=== PATIENT | male | born 1975 | race Caucasian/White ===

== ENCOUNTER 2017-10-11 13:25 | Emergency (ER) | payer BC ==
[2017-10-11 13:31] VITALS: BP 133/82
[2017-10-11] MEDS ORDERED: Lidocaine 1% 20 ML MDV INJECT ONE (13:38)
[2017-10-11] MEDS ORDERED: Bacitracin/Neomycin/Polymyxin B Oint 0.9 GM U/D Packet TOP ONE (13:46)
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
== END 2017-10-11 14:00 | disposition home or self-care (01) ==
LOC: CC.ED 13:25
DX: S61.511A Laceration without foreign body of right wrist, initial encounter (principal); W25.XXXA Contact with sharp glass, initial encounter
CPT/HCPCS: 12001; 99282

== ENCOUNTER 2020-08-10 03:55 | Emergency (ER) | payer MEDICAID ==
[2020-08-10 04:00] VITALS: BP 133/80; PULSE 110
[2020-08-10] MEDS ORDERED: Take Home: Cefuroxime 250 MG Tab, 2 Tab Pack PO ONE (04:33)
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
== END 2020-08-10 04:49 | disposition home or self-care (01) ==
LOC: CC.ED 03:55
DX: T24.222A Burn of second degree of left knee, initial encounter (principal); T24.221A Burn of second degree of right knee, initial encounter; Z53.33 Arthroscopic surgical procedure converted to open procedure
CPT/HCPCS: 87070; 87077; 87186; 99283; A9270-GY

== ENCOUNTER 2020-09-24 13:00 | Emergency (ER) | payer MEDICAID ==
[2020-09-24] MEDS ORDERED: Albuterol/Ipratropium 3.0-0.5 MG/3 ML Neb Soln NEB ONE (13:16)
[2020-09-24] MEDS ORDERED: Albuterol 8 GM Inhaler INH STA (13:17)
[2020-09-24] MEDS ORDERED: predniSONE 20 MG Tab PO STA (13:17)
[2020-09-24] MEDS ORDERED: Azithromycin 250 MG Tab PO ONE (13:23)
--- NOTE | 2020-09-24 13:23 | EDM.PDOC ---
ED HPI GENERAL MEDICAL PROBLEM - General Chief Complaint: General Stated Complaint: Cough, Asthma Hx Time Seen by Provider: 09/24/20 13:03 Source of Information: Reports: Patient History Limitations: Reports: No Limitations - History of Present Illness INITIAL COMMENTS - FREE TEXT/NARRATIVE: This patient is a 45 year old male patient that presents to the ER. Patient reports that for 1 week having wheezing, cough, shortness of breath, and congestion. Patient denies n, v, d, f. Onset Date: 09/17/20 Duration: Week(s): (1) Severity: Moderate Improves with: Reports: None Worsens with: Reports: None Associated Symptoms: Reports: Cough, Shortness of Breath. Denies: Confusion, Chest Pain, cough w sputum, Diaphoresis, Fever/Chills, Headaches, Loss of Appetite, Malaise, Nausea/Vomiting, Rash, Seizure, Syncope, Weakness - Related Data Allergies Allergy/AdvReac Type Severity Reaction Status Date / Time No Known Allergies Allergy Verified 09/24/20 13:16 Home Meds: Home Meds Azithromycin [Zithromax] 250 mg PO DAILY 4 Days #4 tablet 09/24/20 [Rx] predniSONE [Prednisone] 20 mg PO DAILY #4 tablet 09/24/20 [Rx] Past Medical History Respiratory History: Reports: Asthma, Other (See Below) Other Respiratory History: seasonal allergies; PNA x3 Genitourinary History: Reports: Retention, Urinary Musculoskeletal History: Reports: None - Infectious Disease History Infectious Disease History: Reports: MRSA - Past Surgical History Respiratory Surgical History: Reports: None Male Surgical History: Reports: None Musculoskeletal Surgical History: Reports: Arthroscopic Knee, Other (See Below) Other Musculoskeletal Surgeries/Procedures:: right knee arthroscopic sx Social & Family History - Family History Cardiac: Reports: Arrhythmia, Hypertension - Caffeine Use Caffeine Use: Reports: Coffee, Energy Drinks ED ROS GENERAL - Review of Systems Review Of Systems: See Below Constitutional: Reports: No Symptoms. Denies: Fever HEENT: Reports: Rhinitis, Sinus Problem Respiratory: Reports: Shortness of Breath, Wheezing, Cough. Denies: Pleuritic Chest Pain, Sputum, Hemoptysis Cardiovascular: Reports: No Symptoms Endocrine: Reports: No Symptoms GI/Abdominal: Reports: No Symptoms : Reports: No Symptoms Musculoskeletal: Reports: No Symptoms Skin: Reports: No Symptoms Neurological: Reports: No Symptoms Psychiatric: Reports: No Symptoms Hematologic/Lymphatic: Reports: No Symptoms Immunologic: Reports: No Symptoms ED EXAM, GENERAL - Physical Exam Exam: See Below Exam Limited By: No Limitations General Appearance: Alert, WD/WN, No Apparent Distress Eye Exam: Bilateral Eye: Normal Inspection, PERRL Ears: Normal External Exam, Normal Canal, Hearing Grossly Normal, Normal TMs Ear Exam: Bilateral Ear: Auricle Normal, Canal Normal, TM normal Nose: Normal Inspection, Normal Mucosa, No Blood Throat/Mouth: Normal Inspection, Normal Lips, Normal Teeth, Normal Gums, Normal Oropharynx, Normal Voice, No Airway Compromise Head: Atraumatic, Normocephalic Neck: Normal Inspection, Supple, Non-Tender, Full Range of Motion Respiratory/Chest: No Respiratory Distress, No Accessory Muscle Use, Chest Non- Tender, Wheezing (inspiratory and expiratory moderate throughout. ). No: Crackles, Rales, Accessory Muscle Use, Retractions Cardiovascular: Normal Peripheral Pulses, Regular Rate, Rhythm, No Edema, No Gallop, No JVD, No Murmur, No Rub Peripheral Pulses: 2+: Radial (L), Radial (R) Back Exam: Normal Inspection Extremities: Normal Inspection, Normal Range of Motion, Non-Tender, No Pedal Edema, Normal Capillary Refill Neurological: Alert, Oriented, Normal Cognition, Normal Gait, No Motor/Sensory Deficits Psychiatric: Normal Affect, Normal Mood Skin Exam: Warm, Dry, Intact, Normal Color, No Rash Lymphatic: No Adenopathy Course - Orders/Labs/Meds Orders: Active Orders 24 hr Category Date Time Status RT Aerosol Therapy [RC] ASDIRECTED Care 09/24/20 13:16 Active RT Post Treatment Assessment [RC] Click to Edit Care 09/24/20 13:20 Active RT Pre-Treatment Assessment [RC] Click to Edit Care 09/24/20 13:20 Active Meds: Medications Discontinued Medications Generic Name Dose Route Start Last Admin Trade Name Freq PRN Reason Stop Dose Admin Albuterol 1 gm 09/24/20 13:17 09/24/20 13:28 Albuterol 8 Gm Inhaler INH 09/24/20 13:18 2 puff Q4H STA Administration Albuterol/Ipratropium 3 ml 09/24/20 13:16 09/24/20 13:23 Albuterol/Ipratropium 3.0-0.5 Mg/3 Ml Neb Soln NEB 09/24/20 13:17 3 ml ONETIME ONE Administration Azithromycin 500 mg 09/24/20 13:23 09/24/20 13:28 Azithromycin 250 Mg Tab PO 09/24/20 13:24 500 mg ONETIME ONE Administration Prednisone 20 mg 09/24/20 13:17 09/24/20 13:28 Prednisone 20 Mg Tab PO 09/24/20 13:18 20 mg NOW STA Administration - Re-Assessments/Exams Free Text/Narrative Re-Assessment/Exam: 09/24/20 13:38 Post breathing treatment, lungs have more audible wheeze, moving more air. Patient no longer coughing, reports no longer short of breath and feels better. Departure - Departure Time of Disposition: 13:34 Disposition: Home, Self-Care 01 Condition: Fair Clinical Impression: Acute bronchitis Qualifiers: Bronchitis organism: unspecified organism Qualified Code(s): J20.9 - Acute bronchitis, unspecified - Discharge Information *PRESCRIPTION DRUG MONITORING PROGRAM REVIEWED*: Not Applicable *COPY OF PRESCRIPTION DRUG MONITORING REPORT IN PATIENT LUIS: Not Applicable Prescriptions: predniSONE [Prednisone] 20 mg PO DAILY #4 tablet Azithromycin [Zithromax] 250 mg PO DAILY 4 Days #4 tablet Instructions: Acute Bronchitis, Adult, [id number] Referrals: PCP,None [Primary Care Provider] - Forms: ED Department Discharge Additional Instructions: Followup with your primary care provider Return to the ER for worsening of condition or any emergent concerns Rest ProAir inhaler 90mcg 1-2 puffs every 4-6 hours as needed #1 given in ER Prednisone 20mg 1 pill once a day for 5 days total #4 sent to pharmacy, #1 given in ER Zithromax 250mg 1 pill once a day for 4 days #4 sent to pharmacy - My Orders Last 24 Hours: My Active Orders 09/24/20 13:16 RT Aerosol Therapy [RC] ASDIRECTED 09/24/20 13:20 RT Post Treatment Assessment [RC] Click to Edit RT Pre-Treatment Assessment [RC] Click to Edit - Assessment/Plan Last 24 Hours: My Active Orders 09/24/20 13:16 RT Aerosol Therapy [RC] ASDIRECTED 09/24/20 13:20 RT Post Treatment Assessment [RC] Click to Edit RT Pre-Treatment Assessment [RC] Click to Edit Plan: PLEASE SEE RN NOTE FOR PFSH
[2020-09-24 13:48] VITALS: BP 105/65; PULSE 107
== END 2020-09-24 13:43 | disposition home or self-care (01) ==
LOC: CC.ED 13:00
DX: J20.9 Acute bronchitis, unspecified (principal)
CPT/HCPCS: 94640; 99284; A9270; J7512; J7620-GY

== ENCOUNTER 2021-07-04 23:54 | Emergency (ER) | payer BC, MEDICAID ==
[2021-07-05 00:01] VITALS: BP 133/72; PULSE 90
[2021-07-05] MEDS: Albuterol 8 GM Inhaler INH ONE (00:12)
== END 2021-07-05 00:25 | disposition home or self-care (01) ==
LOC: CC.ED 23:54
DX: R06.2 Wheezing (principal)
CPT/HCPCS: 99283; 99284; A9270-GY

== ENCOUNTER 2021-09-27 22:46 | Emergency (ER) | payer MEDICAID ==
[2021-09-27 23:00] VITALS: BP 142/86; PULSE 74
[2021-09-27] MEDS ORDERED: Diphtheria,Pertussis(Acell),Tetanus Vaccine 0.5 ML Syringe IM ONE (23:02)
[2021-09-27] MEDS ORDERED: Doxycycline 100 MG Tab PO ONE (23:13)
== END 2021-09-27 23:30 | disposition home or self-care (01) ==
LOC: CC.ED 22:46
DX: L08.9 Local infection of the skin and subcutaneous tissue, unspecified (principal); Z23 Encounter for immunization
CPT/HCPCS: 73140-F1; 90471; 90715; 99283; 99283-25; 99284; A9270-GY

== ENCOUNTER 2021-11-20 09:04 | Emergency (ER) | payer MEDICAID ==
[2021-11-20] MEDS: Lidocaine 1% with EPINEPHrine 1:100,000 20 ML MDV INJECT ONE (09:19)
[2021-11-20 09:25] VITALS: BP 112/87; PULSE 62
[2021-11-20] MEDS ORDERED: Bacitracin/Neomycin/Polymyxin B Oint 28.4 GM Tube TOP ONE (09:30)
[2021-11-20] MEDS: Bacitracin/Neomycin/Polymyxin B Oint 0.9 GM U/D Packet TOP ONE (09:47)
== END 2021-11-20 09:57 | disposition home or self-care (01) ==
LOC: CC.ED 09:04
DX: S91.112A Laceration without foreign body of left great toe without damage to nail, initial encounter (principal); W26.8XXA Contact with other sharp object(s), not elsewhere classified, initial encounter; Y92.009 Unspecified place in unspecified non-institutional (private) residence as the place of occurrence of the external cause
CPT/HCPCS: 12002; 99282; 99283

== ENCOUNTER 2022-02-02 21:55 | Emergency (ER) | payer MEDICAID ==
[2022-02-02 22:14] VITALS: BP 122/66; PULSE 93
[2022-02-02] MEDS: Tetracaine HCl/PF 0.5% 4 ML Bottle EYERT ONE (22:34)
[2022-02-02] MEDS: Ciprofloxacin 0.3% Ophth Soln 5 ML Bottle EYERT STA (22:36)
== END 2022-02-02 22:43 | disposition home or self-care (01) ==
LOC: CC.ED 21:55
DX: S05.02XA Injury of conjunctiva and corneal abrasion without foreign body, left eye, initial encounter (principal); F17.210 Nicotine dependence, cigarettes, uncomplicated; W26.8XXA Contact with other sharp object(s), not elsewhere classified, initial encounter
CPT/HCPCS: 99283; A9270

== ENCOUNTER 2022-11-28 18:50 | Emergency (ER) | payer MEDICAID ==
[2022-11-28 19:06] VITALS: BP 128/86; PULSE 74
[2022-11-28] MEDS: Bacitracin/Neomycin/Polymyxin B Oint 0.9 GM U/D Packet TOP ONE (19:26)
[2022-11-28] MEDS: Lidocaine 1% 5 ML VIAL INJECT ONE (19:26)
== END 2022-11-28 19:48 | disposition home or self-care (01) ==
LOC: CC.ED 18:50
DX: S61.412A Laceration without foreign body of left hand, initial encounter (principal); I10 Essential (primary) hypertension; J45.909 Unspecified asthma, uncomplicated; W26.0XXA Contact with knife, initial encounter
CPT/HCPCS: 12001; 99282; 99283; A9270-GY; J3490

== ENCOUNTER 2023-11-01 21:43 | Emergency (ER) | payer MEDICAID ==
[2023-11-01 21:45] VITALS: BP 111/74; PULSE 100
[2023-11-01] MEDS ORDERED: Bacitracin/Neomycin/Polymyxin B Oint 0.9 GM U/D Packet TOP SCH (22:00)
[2023-11-01] MEDS: Lidocaine 1% 5 ML VIAL INJECT ONE (22:23)
[2023-11-01] MEDS: Bacitracin/Neomycin/Polymyxin B Oint 0.9 GM U/D Packet TOP ONE (22:23)
== END 2023-11-01 22:36 | disposition home or self-care (01) ==
LOC: CC.ED 21:43
DX: S61.211A Laceration without foreign body of left index finger without damage to nail, initial encounter (principal); J45.909 Unspecified asthma, uncomplicated; W26.0XXA Contact with knife, initial encounter
CPT/HCPCS: 12001; 99282; 99283; A9270; J3490